=== PATIENT | female | born 1990 | race Caucasian/White ===

== ENCOUNTER → 2017-01-31 | Outpatient (CLI) | payer OTHER ==
[~2017-01-31] MED LIST: NO MEDICATIONS
[2017-01-31 11:03] LABS: CHOLESTEROL 175 mg/dL (0-200); GLUCOSE FASTING 83 mg/dL (70-110); HDL CHOLESTEROL 43 mg/dL (35-95); LDL CHOLESTEROL 122 mg/dL (-130); LDL/HDL RATIO 3 RATIO (0-4); TRIGLYCERIDES 51 mg/dL (10-160)
== END | disposition home or self-care (01) ==
LOC: CLAB 09:34
PROVIDERS: Surgery
DX: E66.01 Morbid (severe) obesity due to excess calories (principal)
CPT/HCPCS: 36415; 80061; 82947